=== PATIENT | male | born 2000 | race African-American/Black ===

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

== ENCOUNTER 2019-01-22 21:09 | Emergency (ER) | payer MEDICAID, SELFPAY ==
--- NOTE | 2019-01-22 22:31 | RAD ---
LEFT SHOULDER THREE VIEWS: History: Fall with shoulder pain. FINDINGS: There are no signs of fracture or dislocation. IMPRESSION: Negative left shoulder. POS: DANILO
== END 2019-01-22 22:13 | disposition home or self-care (01) ==
LOC: ERS 21:09
DX: S40.012A Contusion of left shoulder, initial encounter (principal); F31.9 Bipolar disorder, unspecified; F90.9 Attention-deficit hyperactivity disorder, unspecified type; F17.210 Nicotine dependence, cigarettes, uncomplicated; W19.XXXA Unspecified fall, initial encounter